=== PATIENT | male | born 1950 | race Caucasian/White ===

== ENCOUNTER 2024-07-12 11:08 | Emergency (ER) | payer MEDICARE, BC ==
[~2024-07-12] VITALS: Ht 188 cm; Wt 109.2 kg
--- NOTE | ~2024-07-12 | EKG ---
[facility] [address] [facility] [place], [place] [address] Draft EK completed, results pending confirmation PATIENT NAME: ALICE CAMILO Electrocardiogram DATE OF : 50 PHYSICIAN: PRELIMINARY REPORT #: [id number] REPORT IS CONFIDENTIAL AND NOT TO BE RELEASED WITHOUT AUTHORIZATION
[~2024-07-12 11:08] MED LIST: ASPIR-LOW81 MG PO; ATORVASTATIN CA10 MG PO; HUMALOG100 UNIT/2 SUB-Q; LANTUS100 UNITS/ SUB-Q; METFORMIN HCL1000 MG PO; NORCO 5-325 TA1 EACH PO; TRESIBA FL100 UNIT/1 SQ; VICTOZA 3-0.6 MG/0.1 SUB-Q; VITAMIN B-6250 MG PO; VITAMIN D350 MCG PO; ZESTRIL20 MG PO
[2024-07-12] MEDS ORDERED: CEFTRIAXONE SODIUM 2 GM in SODIUM CHLORIDE 0.9% 100 ML IV ONE (11:15)
[2024-07-12] MEDS ORDERED: SODIUM CHLORIDE 0.9% 2,000 ML IV PRN (11:15)
[2024-07-12] MEDS ORDERED: LISINOPRIL10 MG PO (11:18)
[2024-07-12] MEDS ORDERED: METFORMIN HCL500 M1 PO (11:18)
[2024-07-12] MEDS ORDERED: HUMULIN R500 UNIT/2 SQ (11:18)
[2024-07-12 11:33] LABS: PH, VENOUS 6.947 (7.31-7.41)
[2024-07-12 11:36] LABS: BASOPHILS 0.6 % (0.2-1.2); EOSINOPHILS 0.1 % (0.8-7.0); HEMATOCRIT 37.3 % (40.1-51.0); HEMOGLOBIN 10.6 g/dL (13.7-17.5); LYMPHOCYTES 5.4 % (21.8-53.1); MCH 28.7 PG (25.7-32.2); MCHC 28.4 g/dL (32.3-36.5); MCV 101.1 fL (79.0-92.2); MONOCYTES 9.3 % (5.3-12.2); NEUTROPHILS 82.6 % (34.0-67.9); PLATELET COUNT 323 K/uL (163-337); RBC 3.69 M/uL (4.63-6.08)
[2024-07-12] MEDS ORDERED: SODIUM BICARBONATE 50 MEQ/50 ML SYR IV ONE ×2 (11:45→14:30)
[2024-07-12] MEDS ORDERED: SODIUM BICARBONATE 100 MEQ in DEXTROSE 5% 1,000 ML IV SCH (11:45)
[2024-07-12 11:49] LABS: INR 1.24 (0.80-1.30); PROTIME 15.1 Sec (11.2-14.2)
[2024-07-12 11:50] LABS: PARTIAL THROMBOPLASTIN TIME 22.8 Sec (22.9-41.3)
[2024-07-12 12:00] LABS: ALBUMIN 3.5 g/dL (3.4-5.0); ALBUMIN/GLOBULIN RATIO 1.06 (1.1-2.4); BILIRUBIN, TOTAL 0.6 mg/dL (0.2-1.0); BUN/CREATININE RATIO 16.76 (6.0-28.6); CALCIUM 8.4 mg/dL (8.5-10.1); CREATININE, SERUM 4.89 mg/dL (0.70-1.30); LACTIC ACID, BLOOD 5.1 mmol/L (0.4-2.0); PROTEIN, TOTAL 6.8 g/dL (6.4-8.2)
[2024-07-12 12:08] LABS: ANION GAP 37.5 (7-21)
[2024-07-12] MEDS ORDERED: Insulin Regular, Human 100 UNIT/ML ML ONE (12:08)
[2024-07-12] MEDS ORDERED: CALCIUM GLUCONATE 1,000 MG/10 ML VIAL ONE (12:09)
[2024-07-12] MEDS ORDERED: INSULIN REGULAR IN 0.9 % NACL 100 ML IV SCH (12:15)
[2024-07-12] MEDS ORDERED: CALCIUM GLUCONATE 1,000 MG/10 ML VIAL IV ONE (12:15)
[2024-07-12] MEDS ORDERED: SODIUM CHLORIDE 0.9% 1,000 ML IV PRN ×2 (12:15→12:45)
[2024-07-12] MEDS ORDERED: Insulin Regular, Human 100 UNIT/ML ML IV ONE ×2 (12:15→14:15)
[2024-07-12] MEDS ORDERED: LACTATED RINGER'S 1,000 ML IV ONE ×3 (12:15→15:15)
[2024-07-12 12:20] LABS: BILIRUBIN, URINE NEGATIVE (negative); BLOOD/HGB, URINE NEGATIVE (Negative); KETONE, URINE SMALL (Negative); LEUK ESTERASE, URINE NEGATIVE (negative); NITRITE, URINE NEGATIVE (negative); PH, URINE 5.5 (5-7)
[2024-07-12] MEDS ORDERED: ALBUTEROL SULFATE 0.5% 2.5 MG/0.5 ML VIAL INH ONE (12:30)
[2024-07-12] MEDS ORDERED: NOREPINEPHRINE BITARTRATE 250 ML IV SCH (12:45)
[2024-07-12 13:28] LABS: LACTIC ACID, BLOOD 5.7 mmol/L (0.4-2.0)
[2024-07-12] MEDS ORDERED: VANCOMYCIN HCL 1 GM in DEXTROSE 5% 250 ML IV ONE (13:30)
[2024-07-12] MEDS ORDERED: PIPERACILLIN/TAZOBACTAM 4.5 GM in SODIUM CHLORIDE 0.9% 100 ML IV ONE (13:45)
[2024-07-12 13:52] LABS: ACETAMINOPHEN 0 ug/mL (10-30); ALCOHOL, MEDICAL <3 ng/dL (<3); SALICYLATE 6.4 mg/dL (2.8-20.0)
[2024-07-12 13:52] LABS: BASE EXCESS, BLOOD GAS -24.5 mmol/L (-2-2); HCO3, BLOOD GAS 6.7 mmol/L (22-26); O2 SATURATION, BLOOD GAS 99.2 % (95.0-100.0); PCO2, BLOOD GAS 30.7 mmHg (35-45); PH, BLOOD GAS 6.94 (7.35-7.45); PO2, BLOOD GAS 162 mmHg (80-100); TOTAL CO2, BLOOD GAS 7.6
[2024-07-12 13:53] LABS: OXYGEN RECEIVED, BLOOD GAS 100%
[2024-07-12] MEDS ORDERED: LINEZOLID 600 MG BAG IV ONE (14:00)
[2024-07-12 14:04] LABS: ALBUMIN/GLOBULIN RATIO 0.91 (1.1-2.4); ANION GAP 35.1 (7-21); BILIRUBIN, TOTAL 0.5 mg/dL (0.2-1.0); BUN/CREATININE RATIO 15.9 (6.0-28.6); CALCIUM 7.8 mg/dL (8.5-10.1); CREATININE, SERUM 5.03 mg/dL (0.70-1.30); POTASSIUM 6.1 mmol/L (3.5-5.1); PROTEIN, TOTAL 6.3 g/dL (6.4-8.2)
[2024-07-12 14:13] LABS: AMPHETAMINES, URINE NEGATIVE (NEGATIVE); BENZODIAZEPINE, URINE NEGATIVE (NEGATIVE); BUPRENORPHINE, URINE NEGATIVE (NEGATIVE); CANNABINOID, URINE NEGATIVE (NEGATIVE); COCAINE, URINE NEGATIVE (NEGATIVE); ECSTASY, URINE NEGATIVE (NEGATIVE); FENTANYL, URINE NEGATIVE (NEGATIVE); METHADONE, URINE NEGATIVE (NEGATIVE); OPIATES, URINE NEGATIVE (NEGATIVE); OXYCODONE, URINE NEGATIVE (NEGATIVE); PHENCYCLIDINE, URINE NEGATIVE (NEGATIVE)
[2024-07-12 14:14] LABS: BARBITURATES, URINE NEGATIVE (NEGATIVE)
[2024-07-12] MEDS ORDERED: SODIUM BICARBONATE 50 MEQ/50 ML VIAL IV ONE (14:30)
[2024-07-12] MEDS ORDERED: LACTATED RINGER'S 1,000 ML IV SCH ×2 (15:15)
[2024-07-12 15:25] LABS: ALBUMIN 2.9 g/dL (3.4-5.0); ANION GAP 30.8 (7-21); BILIRUBIN, TOTAL 0.5 mg/dL (0.2-1.0); BUN/CREATININE RATIO 15.01 (6.0-28.6); CALCIUM 7.5 mg/dL (8.5-10.1); CREATININE, SERUM 5.26 mg/dL (0.70-1.30); POTASSIUM 4.8 mmol/L (3.5-5.1); PROTEIN, TOTAL 5.8 g/dL (6.4-8.2)
[2024-07-12 15:30] VITALS: BP 112/45
--- NOTE | 2024-07-13 20:22 | EKG ---
[facility] [address] [facility] [place] [address] Signed Sinus rhythm with 1st degree AV block Right bundle branch block Left posterior fascicular block Bifascicular block Inferior infarct , age undetermined Abnormal ECG No previous ECGs available Confirmed by Rosita Laws DO ([id number]) on 07/13/2024 8:21:50 PM Electronically Signed By: ROSITA LAWS DO 07/13/242021 PATIENT NAME: ALICE CAMILO Electrocardiogram DATE OF : 50 PHYSICIAN: ROSITA LAWS DO REPORT #: [id number] REPORT IS CONFIDENTIAL AND NOT TO BE RELEASED WITHOUT AUTHORIZATION
== END 2024-07-12 16:28 | disposition other institution, planned readmission (95) ==
LOC: ED 11:08
PROVIDERS: Emergency Medicine
DX: E10.10 Type 1 diabetes mellitus with ketoacidosis without coma (principal); E87.5 Hyperkalemia; R57.9 Shock, unspecified; E78.00 Pure hypercholesterolemia, unspecified; Z79.4 Long term (current) use of insulin; Z79.84 Long term (current) use of oral hypoglycemic drugs; Z79.82 Long term (current) use of aspirin; Z79.899 Other long term (current) drug therapy; Z87.891 Personal history of nicotine dependence
CPT/HCPCS: 36415; 36556; 51702; 71045; 71250; 74176; 80053; 80307; 81003; 82803; 82947; 83036; 83605; 84484; 85025; 85060; 85610; 85730; 87040; 93005; 93010; 94644; 96368; 99291; A4311; C1751; G0480; J0612; J0696; J1815; J2020; J2543; J7030; J7070; J7121